=== PATIENT | female | born 1975 | race Caucasian/White ===

== ENCOUNTER 2021-12-24 07:00 | Outpatient (RCR) | payer BC, SELFPAY | END 2022-04-15 09:49 | disposition home or self-care (01) | LOC: HO.PTCHIC 07:00 | PROVIDERS: PCP Internal Medicine; Visit Provider Orthopaedic Surgery Foot and Ankle Surgery | DX: Z98.890 Other specified postprocedural states (principal) | CPT/HCPCS: 97110; 97140; 97161 ==

== ENCOUNTER 2022-11-16 15:30 | Outpatient (RCR) | payer BC, SELFPAY | END 2022-12-10 15:35 | disposition home or self-care (01) | LOC: HO.OT 15:30 | PROVIDERS: PCP Internal Medicine; Visit Provider Physician Assistant | DX: M67.431 Ganglion, right wrist (principal) | CPT/HCPCS: 97035; 97110; 97140; 97165; 97760 ==

== ENCOUNTER 2023-01-28 07:00 | Outpatient (RCR) | payer BC, SELFPAY | END 2023-09-13 13:17 | disposition home or self-care (01) | LOC: HO.PTCHIC 07:00 | PROVIDERS: PCP Internal Medicine; Visit Provider Physician Assistant Surgical | DX: Z98.890 Other specified postprocedural states (principal) | CPT/HCPCS: 97035; 97110; 97140; 97161 ==

== ENCOUNTER 2025-01-30 16:28 | Outpatient (REF) | payer BC, SELFPAY ==
[2025-01-30 17:32] LABS: Iron 75 mcg/dL (30-160); Percent Iron Saturation 29 % (15-50); Total Iron Binding Capacity 263 mcg/dL (228-428); Unsaturated Iron Binding 188 ug/dL
== END 2025-01-30 16:29 | disposition home or self-care (01) ==
LOC: HO.LAB 16:28
PROVIDERS: PCP Internal Medicine; Visit Provider Psychiatry & Neurology Neurology
DX: G25.81 Restless legs syndrome (principal)
CPT/HCPCS: 36415; 83540